=== PATIENT | male | born 1975 | race Caucasian/White ===

== ENCOUNTER 2016-09-08 01:15 | Inpatient (IN) ==
[2016-09-08 01:41] LABS: Basophils % 0.4 %; Eosinophils # 0.2 K/mcL (0.0-0.6); Eosinophils % 2.2 %; Hemoglobin 13.8 g/dL (12.9-16.9); Immature Granulocytes % 0.2 % (0-4); Immature Platelets 4.8 % (1.1-6.1); Lymphocytes # 1.8 K/mcL (0.6-4.6); Lymphocytes % 19.5 %; Mean Corpuscular HGB Conc 32.9 g/dL (31.6-35.5); Mean Corpuscular Hemoglobin 29.8 pg (28.0-33.3); Mean Corpuscular Volume 90.7 fL (83.0-100.0); Mean Platelet Volume 9.9 fL (9.4-12.4); Monocytes # 0.6 K/mcL (0.0-1.3); Monocytes % 6.9 %; Neutrophils # 6.5 K/mcL (1.6-8.9); Platelet Count 214 K/mcL (140-400); Red Blood Count 4.63 M/mcL (4.19-5.50); Red Cell Distribution Width 16.8 % (11.5-14.5); Segmented Neutrophils % 70.8 %
[2016-09-08 01:55] LABS: Alanine Aminotransferase 678 Units/L (0-55); Albumin 2.9 g/dL (3.5-5.0); Albumin/Globulin Ratio 0.8 (1.1-2.2); Alkaline Phosphatase 146 Units/L (38-126); Amylase 47 Units/L (25-125); Aspartate Amino Transferase 497 Units/L (5-34); BUN/Creatinine Ratio 7 (6-26); Bilirubin,Direct 9.5 mg/dL (0.0-0.5); Bilirubin,Indirect 1.8 mg/dL (0.0-1.2); Bilirubin,Total 11.3 mg/dL (0.2-1.2); Blood Urea Nitrogen 7 mg/dL (8-26); Calcium 9.4 mg/dL (8.6-10.8); Carbon Dioxide 25 mEq/L (19-29); Chloride 106 mEq/L (98-109); Globulin 3.6 g/dL (2.4-3.5); Glucose 109 mg/dL (70-99); Lipase 63 Units/L (8-78); Osmolality,Calculated 289 (280-300); Sodium 140 mEq/L (136-145); Total Protein 6.5 g/dL (6.0-8.3); eGFR For African Americans > 60 (> 60); eGFR For Non-African Americans > 60 (> 60)
[2016-09-08 03:33] LABS: Bilirubin,Urine Large (Negative); Blood,Urine Negative (Negative); Clarity,Urine Cloudy (Clear); Color,Urine Orange (Yellow); Glucose,Urine (UA) Normal (Normal); Ketones,Urine Trace mg/dL (Negative); Leukocyte Esterase,Urine Small (Negative); Nitrite,Urine Negative (Negative); Protein,Urine Negative (Neg-Trace); Specific Gravity,Urine 1.021 (1.010-1.025); Urobilinogen,Urine Normal (Normal)
[2016-09-08 03:36] LABS: Hyaline Casts,Urine None Seen per lpf (None-Few); Squamous Epithelial Cell,Urine None Seen per lpf (None-Few); WBC,Urine 0-3 per hpf (0-3)
[2016-09-08] MEDS ORDERED: Ondansetron 4 MG/2 ML VIAL IVP ONE (03:37)
[2016-09-08] MEDS ORDERED: 0.9 % Sodium Chloride 1,000 ML IVC ONE (03:37)
[2016-09-08] MEDS ORDERED: *HR* HYDROmorphone (PF) 1 MG/ML SYRINGE IVP ONE ×2 (03:37→04:43)
[2016-09-08 03:46] LABS: Bacteria,Urine Few per hpf (None-Few)
[2016-09-08 05:08] LABS: INR 1.1; Prothrombin Time 11.5 Seconds (9.4-12.1)
[2016-09-08 05:11] LABS: Activated Partial Thrombo Time 32.9 Seconds (26.0-36.0)
--- NOTE | 2016-09-08 05:25 | Emergency Department Note ---
Disposition Clinical Impression: Hepatitis, Elevated bilirubin, Cholecystitis Disposition: Admitted As Inpatient Condition: Fair Abdominal Pain HPI - General Chief Complaint: ED GI Bleed Stated Complaint: abdominal Time Seen by Provider: 09/08/16 03:02 Source: patient Mode of arrival: ambulatory Limitations: no limitations Nursing Notes Reviewed: Yes Vital Signs Reviewed: Yes - History of Present Illness HPI Narrative: Patient here for evaluation of abdominal pain and jaundice. Patient had a recent hospital stay up according review was diagnosed with hepatitis B as well as gallbladder problems. During the course of his stay he undergone several different opinions with what he says "nothing being done". She said that the communication was very poor and he does not even know what was wrong or what they have done up to this point other than he had gotten pain medications and antibiotics. [facility] has been contacted and we have been unable to get medical records at this time. Due to the patient's significant pain as well as jaundice repeat labs were drawn in triage and upon arrival in the main ED and IV was placed and the patient underwent CT scan. CT scan concerning for acute cholecystitis. This will be discussed with Dr. Leal, the general surgeon. Pain Scale: 8 - Related Data Allergies Allergy/AdvReac Type Severity Reaction Status Date / Time No Known Allergies Allergy Verified 09/08/16 01:16 Review of Systems: CONSTITUTIONAL: Weakness and fatigue with intermittent chills HEENT: Eyes: No visual changes. Ears, Nose, Throat: No hearing loss, difficulty talking or unable to swallow. SKIN: Jaundice with pruritus. CARDIOVASCULAR: No chest pain, chest pressure or chest discomfort. No palpitations or edema. RESPIRATORY: No shortness of breath, cough or sputum. GASTROINTESTINAL: Abdominal pain with radiation to the back and associated nausea and vomiting and anorexia. GENITOURINARY: No burning on urination or hematuria. NEUROLOGICAL: No headache, dizziness, syncope, paralysis, ataxia, numbness or tingling in the extremities. No change in bowel or bladder control. MUSCULOSKELETAL: Back pain Abdominal Pain PMH - Past Medical History Medical history: Reports: hepatitis, other Male Surgical History: Reports: herniorrhaphy Psychiatric history: Reports: no psych history - Social History Smoking status: Current every day smoker Alcohol use: Reports: rarely Drug use: Reports: marijuana Physical Exam General appearance: Patient grimacing and significant abdominal pain, conversant Eyes: Jaundiced sclerae, moist conjunctivae; PERRL HENT: Atraumatic; oropharynx clear with moist mucous membranes and no mucosal ulcerations Neck: Normal inspection; Trachea midline; FROM, supple Lungs: CTA, with normal respiratory effort and no intercostal retractions CV: RRR, no MRGs Abdomen: Right upper quadrant and epigastric tenderness with guarding. Extremities: Excoriations to the lower extremities Skin: Jaundice Psych: Appropriate mood and affect Neuro: alert and oriented to person, place and time - General Limitations: no limitations General appearance: alert, in no apparent distress Course - Reevaluation(s) Reevaluation #1: Patient's pain significant improved. We will continue to treat and monitor while working on admission process. - Consultations Consultation #1: Discussed with Dr. Arnold. Patient will need to go to undergo screening for hepatitis as well as an MRCP. He will likely have a lot of the tests completed at [facility] to be repeated if we are unable to get records. Recommended against antibiotics at this time - Patient has normal white count Consultation #2: Discussed with Dr. Lee. Pt accepted. Vital Signs Temperature 98.1 F 09/08/16 01:16 Pulse Rate 66 09/08/16 01:16 Respiratory Rate 18 09/08/16 01:16 Blood Pressure 128/89 09/08/16 01:16 O2 Sat by Pulse Oximetry 99 09/08/16 01:16 Temperature 98.1 F 09/08/16 01:16 Pulse Rate 59 09/08/16 06:06 Respiratory Rate 20 09/08/16 06:06 Blood Pressure 116/78 09/08/16 06:06 O2 Sat by Pulse Oximetry 94 09/08/16 06:06 Oxygen Delivery Oxygen Delivery Room Air Abdominal Pain - Lab Data Result diagrams: 09/08/16 01:34 09/08/16 01:34 Lab Results 09/08/16 09/08/16 09/08/16 Range/Units 01:34 01:34 01:34 WBC 9.2 (4.3-11.1) K/mcL RBC 4.63 (4.19-5.50) M/mcL Hgb 13.8 (12.9-16.9) g/dL Hct 42.0 (37.5-50.1) % MCV 90.7 (83.0-100.0) fL MCH 29.8 (28.0-33.3) pg MCHC 32.9 (31.6-35.5) g/dL RDW 16.8 H (11.5-14.5) % Plt Count 214 (140-400) K/mcL MPV 9.9 (9.4-12.4) fL Immature Gran % 0.2 (0-4) % Seg Neutrophils % 70.8 % Lymphocytes % 19.5 % Monocytes % 6.9 % Eosinophils % 2.2 % Basophils % 0.4 % Neutrophils # 6.5 (1.6-8.9) K/mcL Lymphocytes # 1.8 (0.6-4.6) K/mcL Monocytes # 0.6 (0.0-1.3) K/mcL Eosinophils # 0.2 (0.0-0.6) K/mcL Basophils # 0.0 (0.0-0.2) K/mcL Immature Plt Fraction 4.8 (1.1-6.1) % PT 11.5 (9.4-12.1) Seconds INR 1.1 APTT 32.9 (26.0-36.0) Seconds Sodium 140 (136-145) mEq/L Potassium 4.0 (3.5-4.5) mEq/L Chloride 106 (98-109) mEq/L Carbon Dioxide 25 (19-29) mEq/L BUN 7 L (8-26) mg/dL Creatinine 1.00 (0.72-1.25) mg/dL Est GFR ( Amer) > 60 (> 60) Est GFR (Non-Af Amer) > 60 (> 60) BUN/Creatinine Ratio 7 (6-26) Glucose 109 H (70-99) mg/dL Calculated Osmolality 289 (280-300) Lactic Acid (0.5-2.2) mmol/L Calcium 9.4 (8.6-10.8) mg/dL Total Bilirubin 11.3 H (0.2-1.2) mg/dL Direct Bilirubin 9.5 H (0.0-0.5) mg/dL Indirect Bilirubin 1.8 H (0.0-1.2) mg/dL AST 497 H (5-34) Units/L ALT 678 H (0-55) Units/L Alkaline Phosphatase 146 H (38-126) Units/L Ammonia (18-72) mcmol/L Serum Total Protein 6.5 (6.0-8.3) g/dL Albumin 2.9 L (3.5-5.0) g/dL Globulin 3.6 H (2.4-3.5) g/dL Albumin/Globulin Ratio 0.8 L (1.1-2.2) Amylase 47 (25-125) Units/L Lipase 63 (8-78) Units/L Urine Color (Yellow) Urine Clarity (Clear) Urine pH (5.0-8.0) pH Units Ur Specific [place] (1.010-1.025) Urine Protein (Neg-Trace) mg/dL Urine Glucose (UA) (Normal) mg/dL Urine Ketones (Negative) mg/dL Urine Blood (Negative) Urine Nitrite (Negative) Urine Bilirubin (Negative) Urine Urobilinogen (Normal) mg/dL Ur Leukocyte Esterase (Negative) Urine Microscopic RBC (0-3) per hpf Urine Microscopic WBC (0-3) per hpf Ur Squamous Epith Cells (None-Few) per lpf Urine Bacteria (None-Few) per hpf Hyaline Casts (None-Few) per lpf Ur Culture Indicated? (NO) 09/08/16 09/08/16 09/08/16 Range/Units 03:23 04:06 04:06 WBC (4.3-11.1) K/mcL RBC (4.19-5.50) M/mcL Hgb (12.9-16.9) g/dL Hct (37.5-50.1) % MCV (83.0-100.0) fL MCH (28.0-33.3) pg MCHC (31.6-35.5) g/dL RDW (11.5-14.5) % Plt Count (140-400) K/mcL MPV (9.4-12.4) fL Immature Gran % (0-4) % Seg Neutrophils % % Lymphocytes % % Monocytes % % Eosinophils % % Basophils % % Neutrophils # (1.6-8.9) K/mcL Lymphocytes # (0.6-4.6) K/mcL Monocytes # (0.0-1.3) K/mcL Eosinophils # (0.0-0.6) K/mcL Basophils # (0.0-0.2) K/mcL Immature Plt Fraction (1.1-6.1) % PT (9.4-12.1) Seconds INR APTT (26.0-36.0) Seconds Sodium (136-145) mEq/L Potassium (3.5-4.5) mEq/L Chloride (98-109) mEq/L Carbon Dioxide (19-29) mEq/L BUN (8-26) mg/dL Creatinine (0.72-1.25) mg/dL Est GFR ( Amer) (> 60) Est GFR (Non-Af Amer) (> 60) BUN/Creatinine Ratio (6-26) Glucose (70-99) mg/dL Calculated Osmolality (280-300) Lactic Acid 0.7 (0.5-2.2) mmol/L Calcium (8.6-10.8) mg/dL Total Bilirubin (0.2-1.2) mg/dL Direct Bilirubin (0.0-0.5) mg/dL Indirect Bilirubin (0.0-1.2) mg/dL AST (5-34) Units/L ALT (0-55) Units/L Alkaline Phosphatase (38-126) Units/L Ammonia 36 (18-72) mcmol/L Serum Total Protein (6.0-8.3) g/dL Albumin (3.5-5.0) g/dL Globulin (2.4-3.5) g/dL Albumin/Globulin Ratio (1.1-2.2) Amylase (25-125) Units/L Lipase (8-78) Units/L Urine Color [place] A (Yellow) Urine Clarity Cloudy A (Clear) Urine pH 6.0 (5.0-8.0) pH Units Ur Specific [place] 1.021 (1.010-1.025) Urine Protein Negative (Neg-Trace) mg/dL Urine Glucose (UA) Normal (Normal) mg/dL Urine Ketones Trace H (Negative) mg/dL Urine Blood Negative (Negative) Urine Nitrite Negative (Negative) Urine Bilirubin Large H (Negative) Urine Urobilinogen Normal (Normal) mg/dL Ur Leukocyte Esterase Small H (Negative) Urine Microscopic RBC 3-5 H (0-3) per hpf Urine Microscopic WBC 0-3 (0-3) per hpf Ur Squamous Epith Cells None Seen (None-Few) per lpf Urine Bacteria Few (None-Few) per hpf Hyaline Casts None Seen (None-Few) per lpf Ur Culture Indicated? YES A (NO) Attestation Statement - Attestation Attestation: I, Percy Weaver MD, personally evaluated this patient and discussed their management with the resident physician. I reviewed the resident's note and agree with the documented findings, medical decision making, and plan of care. 40-year-old male presents to the emergency department complaining of right upper abdominal pain which is been going on about one month prior to arrival. Patient was recently admitted at [facility] in [place] for this complaint and left AMA because he felt like they were not doing anything to help him. reports that he had a CT scan which showed cholecystitis with fluid around the gallbladder. He also had markedly elevated hepatic enzymes. On examination patient is a well-developed well-nourished male in no acute distress but appears to be in moderate discomfort. He is alert and oriented 3. There is no cyanosis or diaphoresis. There is jaundice and icterus. Breath sounds clear and equal bilaterally. Heart regular rate and rhythm. Abdomen is soft with marked right upper quadrant tenderness with guarding. Abdomen reviewed. WBC normal. Markedly elevated bilirubin and transaminases. CT of the abdomen and pelvis shows acute cholecystitis with marked thickening of the gallbladder wall with pericholecystic fluid and fat stranding. Dr. Wilder discussed the case with the surgeon junior automation engineer, Dr. Arnold, and she recommended admission by the hospitalist. The hospitalist, Dr. Lee, was consulted and accepted admission of the patient.
[2016-09-08] MEDS ORDERED: Naloxone 0.4 MG/ML INJ IVP PRN (07:18)
[2016-09-08] MEDS ORDERED: *HR* Promethazine 25 MG/ML VIAL IVP PRN (07:18)
[2016-09-08] MEDS ORDERED: *HR* Morphine 2 MG/ML SYRINGE IVP PRN (07:18)
--- NOTE | 2016-09-08 08:11 | Internal Med History&Physical ---
Date of Encounter: 09/08/16 Time of Encounter: 08:00 Assessment and Plan (1) Cholecystitis Current visit: Yes Status: Suspected Possible acute cholecystitis. Will get MRCP. Consult surgery. Keep nothing by mouth. Monitor vital signs. Pain control. Moderate risk for complications. (2) Hepatitis Current visit: Yes Status: Chronic Patient apparently recently diagnosed with hepatitis B. We will obtain records from [facility] to confirm. (3) Elevated bilirubin Current visit: Yes Status: Acute Likely due to acute cholecystitis/hepatitis. Internal Medicine - H&P: HPI Chief complaint: Right upper quadrant abdominal pain Admitted From: Emergency Dept Plans for Post Hospital Care: Home History of present illness: Mr. Edgar is a 40 year old male patient with no significant past medical history presented to the ER with complaints of abdominal pain. Pain has been going on for 3 weeks now. Patient was admitted twice at [facility] in [place] within the past 3 weeks. He had undergone extensive testing there with multiple ultrasounds and CT scans of his abdomen. He says that no clear diagnosis was found and the patient was continuing to have pain so he left AGAINST MEDICAL ADVICE. He was apparently diagnosed with hepatitis B there. He denies any alcohol use. He had some nausea and vomiting when his symptoms initially began but right now it is mostly pain 9 out of 10 in severity. He will have some associated heartburn. No fever chills or night sweats. He also had diarrhea previously that has also improved now. Past Med Surg Social Fam HX - Past Medical History Attestation: Yes The following information was validated with the patient. Source: patient Medical history: hepatitis, other Psychiatric history: no psych history - Social History Smoking Status: Current every day smoker Smokeless Tobacco Status: No Alcohol use: rarely Drug use: marijuana - Additional Family History Additional family history: Reviewed and found to be noncontributory Internal Medicine - H&P: Meds Allergies No Known Allergies Allergy (Verified 09/08/16 01:16) All Systems PM: A 10-system review of systems was performed and is negative for pertinent findings except as documented above in the HPI. - Constitutional Constitutional: malaise, no chills, no fever(s), no night sweats - EENT Eyes: no change in vision, no discharge, no pain, no photophobia Ears: no ear discharge, no ear pain, no tinnitus Nose, mouth and throat: no dysphagia, no nasal discharge, no neck pain, no sore throat - Cardiovascular Cardiovascular ROS IM: no chest pain, no diaphoresis, no dyspnea, no lightheadedness, no palpitations, no syncope - Respiratory Respiratory: no cough, no dyspnea, no wheezing, no excessive phlegm production - Gastrointestinal Gastrointestinal: abdominal pain, loose stools, nausea, vomiting, no diarrhea, no hematemesis, no hematochezia, no melena - Musculoskeletal Musculoskeletal ROS IM: no numbness, no tingling - Integumentary Integumentary IM: no rash, no unusual bruising - Neurological Neurological ROS: no confusion, no convulsions, no focal weakness, no numbness, no tingling, no tremor(s) - Hematologic/Lymphatic Hematologic/Lymphatic: no easy bruising - Constitutional Vitals: Temp Pulse Resp BP Pulse Ox 97.6 F 56 15 101/62 94 09/08/16 07:08 09/08/16 07:08 09/08/16 07:08 09/08/16 07:08 09/08/16 07:08 General appearance: Present: cooperative, A&O X 3, answers questions appropriately Exam: moderate distress - Eye Eye exam: Present: EOMI, PERRL, scleral icterus - Neck Neck exam general surgery: Present: supple, trachea midline. Absent: lymphadenopathy - Respiratory Respiratory exam: Present: CTAB. Absent: accessory muscle use, rales, rhonchi, wheezes - Cardiovascular Cardiovascular exam: Present: RRR, +S1, +S2. Absent: diastolic murmur, gallop, rubs, systolic murmur - Extremities Exam Extremities exam: Present: warm, radial pulses palpable and symetrical. Absent : calf tenderness, cyanotic, pedal edema - Neurological Exam Neurological exam: Present: alert, oriented X3, no focal deficits. Absent: facial droop, speech deficit - Skin Skin exam: Present: dry, intact Additional comments: jaundice Internal Med - H&P Results - Labs CBC & Chem 7: 09/08/16 01:34 09/08/16 01:34 - Impressions Impressions Abdomen/Pelvis CT 09/08/16 03:36 IMPRESSION: 1. Acute cholecystitis. No definite cholelithiasis is identified. 2. Middle lobe pulmonary nodule. Given that the mean diameter is 4.5 mm, further follow-up is not necessary per the modified Fleischner criteria. D/ / Alexy Kothari MD / Alexy Kothari MD Interpreting Provider: Alexy Kothari MD
[2016-09-08] MEDS: 0.9 % Sodium Chloride 1,000 ML IVC SCH ×2 (09:14→17:49)
[2016-09-08] MEDS ORDERED: Ketorolac 15 MG/ML VIAL IVP PRN (09:29)
[2016-09-08] MEDS: Nicotine 21 MG PATCH.TD24 TD SCH (10:52)
[2016-09-08 12:42] LABS: Hepatitis A Antibody IgM Nonreactive (Nonreactive); Hepatitis C Virus Antibody Nonreactive (Nonreactive)
[2016-09-08 12:49] LABS: Hepatitis B Core IgM Reactive (Nonreactive); Hepatitis B Surface Antigen Reactive (Nonreactive)
[2016-09-08] MEDS: *HR* HYDROmorphone (PF) 1 MG/ML SYRINGE IVP PRN ×3 (12:58→21:59)
--- NOTE | 2016-09-08 16:09 | General Surgery Consult Note ---
<Martha Patel - Last Filed: 09/08/16 16:03> Date of Encounter: 09/08/16 Time of Encounter: 14:00 Assessment and Plan (1) Elevated liver enzymes Current Visit: Yes Status: Acute Recommend GI consultation for evaluation Trend LFTs (2) Hyperbilirubinemia Current Visit: Yes Status: Acute MRI complete and shows no evidence of cholelithiasis, choledocholithiasis, or ductal dilatation Recommend GI consulation for recommendations Repeat am labs (3) Hepatitis B Current Visit: Yes Status: Acute Await GI consulation/recommendations Qualifiers: Viral hepatitis chronicity: unspecified Hepatic coma status: without hepatic coma Hepatitis delta agent presence: without delta-agent Qualified Code(s): B19.10 - Unspecified viral hepatitis B without hepatic coma (4) Abdominal pain Current Visit: Yes Status: Acute Supportive care/pain control Serial abdominal exams Will continue to follow and assess progress Qualifiers: Abdominal location: right upper quadrant Qualified Code(s): R10.11 - Right upper quadrant pain History of Present Illness Consult date: 09/08/16 Reason for consult: other (elevated LFTs) Requesting physician: Michael Rivera History of present illness: Mr. Edgar is a 40 year old male who denies any past medical history. He states that he sudden onset of upper abdominal discomfort, mostly on the right side which started approximately 3 weeks ago. He states that the pain is sharp and stabbing and radiates into his back. He reports that it is constant at this point. Denies any alleviating or aggrevating factors. He denies every having pain like this in the past. He does admit to nausea and vomiting when the pain initially started but states that this has resolved. He admits to diarrhea when the pain initially started but states that his has resolved. Denies any melena or hematochezia. Denies any fevers or chills. Denies any shortness of breath of chest pains. He admits that his urine has been tea colored. Denies any alcohol or drug use. He has been admitted to [facility] 2 times in the past 3 weeks and reports that he has had multiples labs and radiologic studies. He states that he left AMA both times because he did not feel that they were doing anything to help him. Past Med Surg Social Fam HX - Past Medical History Source: patient Medical history: hepatitis (B), other Psychiatric history: no psych history - Past Surgical History Surgical History: herniorrhaphy (bilateral inguinal as a child) - Social History Smoking Status: Current every day smoker Packs per day: 1 PPD Smokeless Tobacco Status: No Alcohol use: rarely Drug use: marijuana Current living situation: Home - Independent Activity Level: Independent ambulation Medications and Allergies No Known Home Drugs 09/08/16 [History] Allergies No Known Allergies Allergy (Verified 09/08/16 16:03) Review of Systems All systems PM: reviewed and no additional remarkable complaints except as stated (in the HPI) All systems PM: A 10-system review of systems was performed and is negative for pertinent findings except as documented above in the HPI. General Surgery Exam Initial Vital Signs Temp Pulse Resp BP Pulse Ox 98.1 F 66 18 128/89 99 09/08/16 01:16 09/08/16 01:16 09/08/16 01:16 09/08/16 01:16 09/08/16 01:16 - General physical appearance well developed, well nourished, no distress - Eyes normal ocular movement - ENT normal mucosa, atraumatic, normocephalic - Neck trachea midline - Respiratory normal respiratory effort wheezing: bilateral - Cardiovascular Cardiovascular exam: Present: bradycardia - Abdomen Abdomen general surgery: Present: bowel sounds present, soft, tender Abdominal Tenderness: Present: epigastic, RUQ - Integumentary Integumentary general surgery: Present: warm and dry - Neurologic Present: CN 2-12 grossly intact - Psychiatric Psychiatric general surgery: Present: appropriate, oriented to person, oriented to place, oriented to time, speech is normal, memory intact Exam Initial Vital Signs Temp Pulse Resp BP Pulse Ox 98.1 F 66 18 128/89 99 09/08/16 01:16 09/08/16 01:16 09/08/16 01:16 09/08/16 01:16 09/08/16 01:16 Results - Labs 09/08/16 01:34 09/08/16 01:34 Abnormal lab results RDW 16.8 % (11.5-14.5) H 09/08/16 01:34 BUN 7 mg/dL (8-26) L 09/08/16 01:34 Glucose 109 mg/dL (70-99) H 09/08/16 01:34 Total Bilirubin 11.3 mg/dL (0.2-1.2) H 09/08/16 01:34 Direct Bilirubin 9.5 mg/dL (0.0-0.5) H 09/08/16 01:34 Indirect Bilirubin 1.8 mg/dL (0.0-1.2) H 09/08/16 01:34 AST 497 Units/L (5-34) H 09/08/16 01:34 ALT 678 Units/L (0-55) H 09/08/16 01:34 Alkaline Phosphatase 146 Units/L (38-126) H 09/08/16 01:34 Albumin 2.9 g/dL (3.5-5.0) L 09/08/16 01:34 Globulin 3.6 g/dL (2.4-3.5) H 09/08/16 01:34 Albumin/Globulin Ratio 0.8 (1.1-2.2) L 09/08/16 01:34 Urine Color [place] (Yellow) A 09/08/16 03:23 Urine Clarity Cloudy (Clear) A 09/08/16 03:23 Urine Ketones Trace mg/dL (Negative) H 09/08/16 03:23 Urine Bilirubin Large (Negative) H 09/08/16 03:23 Ur Leukocyte Esterase Small (Negative) H 09/08/16 03:23 Urine Microscopic RBC 3-5 per hpf (0-3) H 09/08/16 03:23 Ur Culture Indicated? YES (NO) A 09/08/16 03:23 Hep Bs Antigen Reactive (Nonreactive) H 09/08/16 01:34 Hep B Core IgM Ab Reactive (Nonreactive) H 09/08/16 01:34 All other labs normal. - Imaging CT scan - abdomen: report reviewed CT scan - pelvis: report reviewed Additional studies: Abdomen/Pelvis CT 09/08/16 03:36 IMPRESSION: 1. Acute cholecystitis. No definite cholelithiasis is identified. 2. Middle lobe pulmonary nodule. Given that the mean diameter is 4.5 mm, further follow-up is not necessary per the modified Fleischner criteria. D/ / Alexy Kothari MD / Alexy Kothari MD Interpreting Provider: Alexy Kothari MD Abdomen MRI 09/08/16 07:45 IMPRESSION: No significant interval change of gallbladder wall thickening and pericholecystic stranding/edema as well as trace ascites in the right abdomen. Findings may represent acute cholecystitis in the appropriate clinical setting. No cholelithiasis, choledocholithiasis or biliary dilation. Nonspecific mild periportal edema. D/ / 09/08/2016 11:20:04 Kimberly Figueroa MD / zohaib Interpreting Provider: Kimberly Figueroa MD Consult Discharge Plan - Plan Referrals: NO,PCP [Primary Care Provider] - - Attending Attestation I examined this patient and my medical decision-making was reviewed with the LAW CLERK/PA/Advanced Practice Nurse/Resident Physician. I agree with the documented findings, disposition and treatment plan as described except to the extent set forth below. <NancySuma vogt Liseth - Last Filed: 09/09/16 08:44> Date of Encounter: 09/08/16 Assessment and Plan (1) Abdominal pain Current Visit: Yes Status: Acute concern abdominal pain is due to hepatitis and not a gallbladder issue as I have never seen an acute/chronic acalculous cholecystitis with lfts so elevated , suspect due to hepatitis and gallbladder is reactive to liver inflammtion Qualifiers: Abdominal location: right upper quadrant Qualified Code(s): R10.11 - Right upper quadrant pain (2) Elevated bilirubin Current Visit: Yes Status: Acute (3) Hepatitis B Current Visit: Yes Status: Acute GI has stated they feel his issue is his acute hepatitis, general surgery will sign off at this time, if needed further please do not hesitate to call. Qualifiers: Viral hepatitis chronicity: acute Hepatic coma status: without hepatic coma Hepatitis delta agent presence: without delta-agent Qualified Code(s): B16.9 - Acute hepatitis B without delta-agent and without hepatic coma (4) Hyperbilirubinemia Current Visit: Yes Status: Acute History of Present Illness History of present illness: Patient is 40 yo male with recent onset about a month ago of RUQ abdominal pain he describes as sharp. She has gone to [facility] in [place] twice for this and his new onset jaundice. He became frustrated as he states he was being told different stories about what was going on and left the hospital and came down to [place]. He has had a very extensive workup that includes HIDA, MRCP, CT scan, labs. LFT's are significantly elevated and he has no gallstones, no duct dilation, no acute cholecystitis. He is awaiting GI consult. He has recently been diagnosed with Hepatitis B. Past Med Surg Social Fam HX - Past Medical History Source: patient Review of Systems All systems PM: A 10-system review of systems was performed and is negative for pertinent findings except as documented above in the HPI. General Surgery Exam Initial Vital Signs Temp Pulse Resp BP Pulse Ox 98.1 F 66 18 128/89 99 09/08/16 01:16 09/08/16 01:16 09/08/16 01:16 09/08/16 01:16 09/08/16 01:16 - General physical appearance well nourished, no distress, jaundice - Eyes PERRL, normal ocular movement, icteric - ENT normal mucosa, atraumatic - Neck trachea midline - Respiratory normal expansion, normal respiratory effort, clear to auscultation - Cardiovascular Cardiovascular exam: Present: RRR - Abdomen Abdomen general surgery: Present: bowel sounds present, soft, tender. Absent: guarding, rebound, rigid, peritoneal Abdominal Tenderness: Present: epigastic, RUQ - Integumentary Integumentary general surgery: Present: other (jaundice). Absent: no abnormal pigmentation - Neurologic Present: CN 2-12 grossly intact - Musculoskeletal Present: normal gait, normal posture - Psychiatric Psychiatric general surgery: Present: A&Ox3, speech is normal Exam Initial Vital Signs Temp Pulse Resp BP Pulse Ox 98.1 F 66 18 128/89 99 09/08/16 01:16 09/08/16 01:16 09/08/16 01:16 09/08/16 01:16 09/08/16 01:16 Results - Labs 09/09/16 04:36 09/09/16 04:36 Abnormal lab results RDW 17.2 % (11.5-14.5) H 09/09/16 04:36 BUN 6 mg/dL (8-26) L 09/09/16 04:36 POC Glucose 95 (58-89) H 09/09/16 00:03 Total Bilirubin 11.3 mg/dL (0.2-1.2) H 09/08/16 01:34 Direct Bilirubin 9.5 mg/dL (0.0-0.5) H 09/08/16 01:34 Indirect Bilirubin 1.8 mg/dL (0.0-1.2) H 09/08/16 01:34 AST 497 Units/L (5-34) H 09/08/16 01:34 ALT 678 Units/L (0-55) H 09/08/16 01:34 Alkaline Phosphatase 146 Units/L (38-126) H 09/08/16 01:34 Albumin 2.9 g/dL (3.5-5.0) L 09/08/16 01:34 Globulin 3.6 g/dL (2.4-3.5) H 09/08/16 01:34 Albumin/Globulin Ratio 0.8 (1.1-2.2) L 09/08/16 01:34 Urine Color [place] (Yellow) A 09/08/16 03:23 Urine Clarity Cloudy (Clear) A 09/08/16 03:23 Urine Ketones Trace mg/dL (Negative) H 09/08/16 03:23 Urine Bilirubin Large (Negative) H 09/08/16 03:23 Ur Leukocyte Esterase Small (Negative) H 09/08/16 03:23 Urine Microscopic RBC 3-5 per hpf (0-3) H 09/08/16 03:23 Ur Culture Indicated? YES (NO) A 09/08/16 03:23 Hep Bs Antigen Reactive (Nonreactive) H 09/08/16 01:34 Hep B Core IgM Ab Reactive (Nonreactive) H 09/08/16 01:34 Diabetes panel 09/09/16 Range/Units 04:36 Sodium 141 (136-145) mEq/L Potassium 3.9 (3.5-4.5) mEq/L Chloride 109 (98-109) mEq/L Carbon Dioxide 23 (19-29) mEq/L BUN 6 L (8-26) mg/dL Creatinine 0.82 (0.72-1.25) mg/dL Glucose 92 (70-99) mg/dL Calcium 9.1 (8.6-10.8) mg/dL Calcium panel 09/09/16 Range/Units 04:36 Calcium 9.1 (8.6-10.8) mg/dL Pituitary panel 09/09/16 Range/Units 04:36 Sodium 141 (136-145) mEq/L Potassium 3.9 (3.5-4.5) mEq/L Chloride 109 (98-109) mEq/L Carbon Dioxide 23 (19-29) mEq/L BUN 6 L (8-26) mg/dL Creatinine 0.82 (0.72-1.25) mg/dL Glucose 92 (70-99) mg/dL Calcium 9.1 (8.6-10.8) mg/dL Adrenal panel 09/09/16 Range/Units 04:36 Sodium 141 (136-145) mEq/L Potassium 3.9 (3.5-4.5) mEq/L Chloride 109 (98-109) mEq/L Carbon Dioxide 23 (19-29) mEq/L BUN 6 L (8-26) mg/dL Creatinine 0.82 (0.72-1.25) mg/dL Glucose 92 (70-99) mg/dL Calcium 9.1 (8.6-10.8) mg/dL All other labs normal. - Imaging CT scan - abdomen: report reviewed, image reviewed CT scan - pelvis: report reviewed, image reviewed Additional studies: MRI reviewed - Attending Attestation I examined this patient and my medical decision-making was reviewed with the LAW CLERK/PA/Advanced Practice Nurse/Resident Physician. I agree with the documented findings, disposition and treatment plan as described except to the extent set forth below.
--- NOTE | 2016-09-08 17:02 | Event Note ---
Date of Encounter: 09/08/16 Time of Encounter: 15:00 Patient seen full consult to follow. Patient with acute hepatitis B.
[2016-09-08] MEDS: Pantoprazole 40 MG VIAL IVP SCH (17:48)
[2016-09-09] MEDS: *HR* HYDROmorphone (PF) 1 MG/ML SYRINGE IVP PRN ×3 (04:42→12:38)
[2016-09-09] MEDS: 0.9 % Sodium Chloride 1,000 ML IVC SCH (04:44)
[2016-09-09 05:17] LABS: Basophils # 0.1 K/mcL (0.0-0.2); Basophils % 0.8 %; Eosinophils # 0.2 K/mcL (0.0-0.6); Eosinophils % 2.8 %; Hematocrit 41.4 % (37.5-50.1); Hemoglobin 13.8 g/dL (12.9-16.9); Immature Granulocytes % 0.3 % (0-4); Lymphocytes # 1.4 K/mcL (0.6-4.6); Mean Corpuscular HGB Conc 33.3 g/dL (31.6-35.5); Mean Corpuscular Hemoglobin 30.4 pg (28.0-33.3); Mean Corpuscular Volume 91.2 fL (83.0-100.0); Mean Platelet Volume 10.7 fL (9.4-12.4); Monocytes # 0.5 K/mcL (0.0-1.3); Monocytes % 7.4 %; Neutrophils # 4.3 K/mcL (1.6-8.9); Platelet Count 165 K/mcL (140-400); Red Blood Count 4.54 M/mcL (4.19-5.50); Red Cell Distribution Width 17.2 % (11.5-14.5); Segmented Neutrophils % 66.7 %
[2016-09-09] MEDS: Pantoprazole 40 MG VIAL IVP SCH (05:28)
[2016-09-09 05:39] LABS: BUN/Creatinine Ratio 7 (6-26); Blood Urea Nitrogen 6 mg/dL (8-26); Calcium 9.1 mg/dL (8.6-10.8); Carbon Dioxide 23 mEq/L (19-29); Chloride 109 mEq/L (98-109); Glucose 92 mg/dL (70-99); Osmolality,Calculated 289 (280-300); Potassium 3.9 mEq/L (3.5-4.5); Sodium 141 mEq/L (136-145); eGFR For African Americans > 60 (> 60); eGFR For Non-African Americans > 60 (> 60)
[2016-09-09] MEDS: Nicotine 21 MG PATCH.TD24 TD SCH (07:52)
[2016-09-09] MEDS: ALPRAZolam 0.5 MG TABLET PO PRN ×2 (08:38→14:04)
[2016-09-09 09:01] LABS: Albumin 2.6 g/dL (3.5-5.0); Albumin/Globulin Ratio 0.7 (1.1-2.2); Bilirubin,Direct 8.5 mg/dL (0.0-0.5); Bilirubin,Indirect 2.7 mg/dL (0.0-1.2); Globulin 3.5 g/dL (2.4-3.5); Total Protein 6.1 g/dL (6.0-8.3)
[2016-09-09 09:02] LABS: Bilirubin,Total 11.2 mg/dL (0.2-1.2)
[2016-09-09 11:46] VITALS: BP 129/82
--- NOTE | 2016-09-09 14:23 | Discharge Summary ---
Date of Encounter: 09/09/16 Time of Encounter: 10:00 - Discharge Diagnosis (1) Abdominal pain Priority: Primary Status: Acute Qualifiers: Abdominal location: right upper quadrant Qualified Code(s): R10.11 - Right upper quadrant pain (2) Hepatitis B Priority: Primary Status: Acute Qualifiers: Viral hepatitis chronicity: acute Hepatic coma status: without hepatic coma Hepatitis delta agent presence: without delta-agent Qualified Code(s): B16.9 - Acute hepatitis B without delta-agent and without hepatic coma (3) Elevated liver enzymes Priority: Primary Status: Acute (4) Hyperbilirubinemia Priority: Primary Status: Acute - Discharge Medications Prescriptions: OxyCODONE/APAP 5/325 [Percocet 5/325 MG] 1 each PO Q8HR PRN #10 tablet PRN Reason: Pain Home Medications: OxyCODONE/APAP 5/325 [Percocet 5/325 MG] 1 each PO Q8HR PRN #10 tablet 09/09/16 [Rx] Allergies/Adverse Reactions: Allergies No Known Allergies Allergy (Verified 09/08/16 16:03) Procedures/tests Complete & Pending: Procedures Performed prior 72 hours Category Date Time Status MR MRCP [MR abdomen wo con] [MR] Stat MRI 09/08/16 07:45 Completed Date of admission: 09/08/16 06:09 Primary care physician: PCP NO Consults: 09/08/16 08:07 Consult to Surgery [CONS] Routine Consulting Provider: Surgery [facility] Reason for Consult: Elevated bilirubin possible cholecystitis; ED discussed with Dr. Leal Call Completed: Yes 09/08/16 11:33 Consult to Gastroenterology [CONS] Routine Consulting Provider: Gastroenterology Bertha Reason for Consult: Hepatitis/ cholecystitis Time Notified: 11:33 Call Completed: Yes Discharging clinician: Temi Rivas Anticipated date of discharge: 09/09/16 - Patient Status Disposition: Home, Self-Care Condition: Fair Functional capacity at discharge: independent ambulation Overall status at discharge: patient is progressing back to baseline - Discharge Instructions Follow Up With: Emiliano Herbert DO [Resident] - 09/18/16 10:30 am (Please arrive early to fill out your new patient packet. You will need to bring your photo ID, insurance card, any medications you are on. If you need to cancel please give a 24 hour notice. Thank you) - Diet and Activity Activity: resume usual activities as tolerated Diet: low fat, low cholesterol (full liquids, advance to soft and solids as tolerated) Hospital course: Mr. Edgar is a 40 year old male with no significant medical history, who was admitted with right upper quadrant and epigastric abdominal pain. Patient has had 2 recent hospitalizations at [facility] in [place] from where he left AGAINST MEDICAL ADVICE and presented to our hospital on the same day with similar complaints. He is noted to have acute hepatitis B infection with elevated bilirubin and liver enzymes, possibly causing abdominal pain and discomfort. CT abdomen/pelvis was suggestive of acute cholecystitis and he underwent MRCP that showed no biliary dilation, choledocholithiasis or gallstones. He was kept nothing by mouth along with supportive care with IV hydration and pain control. Surgery was consulted and recommended no acute intervention. GI was consulted and recommend outpatient follow-up. Liver enzymes and bilirubin are noted to be elevated but stable. Hepatitis B surface antigen and hepatitis B core IgM are noted to be positive. Patient is able to tolerate oral diet and is anxious to be discharged today as he needs to get back to work as he has no other source of income. He is medically stable for discharge with outpatient follow-up. Time spent discussing smoking cessation with patient: 3 to 10 minutes - Time Spent with Patient Total time spent providing and/or coordinating discharge services: Greater than 30 minutes (45 min) - Constitutional Vitals: Temp Pulse Resp BP Pulse Ox 97.9 F 51 16 129/82 97 09/09/16 11:42 09/09/16 11:42 09/09/16 11:42 09/09/16 11:42 09/09/16 11:42 General appearance: Present: cooperative, A&O X 3, answers questions appropriately - Cardiovascular Cardiovascular exam: Present: RRR, +S1, +S2. Absent: diastolic murmur, gallop, rubs, systolic murmur - GI/Abdominal GI/Abdominal exam: Present: normal bowel sounds, soft (RUQ and epigastric tenderness), no peritoneal signs. Absent: distended, tenderness
--- NOTE | 2016-09-09 14:28 | Gastroenterology Consult Note ---
<Harsh Kaumfan - Last Filed: 09/09/16 14:30> Date of Encounter: 09/09/16 Time of Encounter: 11:15 - Time Spent With Patient Total time spent is greater than 50% in coordination of care (as documented) at patient's floor/unit and/or counseling patient: GI History of Present Illness - Data of Consult Patient: new to practice Consult date: 09/09/16 Requesting Physician: Temi Rivas MD - Consult Narrative Reason for consult: Hepatitis History of present illness: Mr. Edgar is a 40 year old male who denies any PMHx presented to the ED with complaints of abdominal pain for the past 3 weeks. He denies any alleviating or aggrevating factors. He has been admitted twice at [facility] in [place] in the past 3 weeks. He reports having multiple labs and radiologic studies completed. He states he left AMA both times because he did not feel that they were doing anything to help him. He was diagnosed with Hepatitis B while at [place]. He denies fever, chills, chest pain, alcohol use, melena, or hematochezia. He reports nausea, vomiting. and diarrhea when the pain started, but states it is resolved now. CT A/P shows gallbladder wall thickening with pericholecystic fat stranding and fluid, no definite cholelithiasis identified. MRI showed no cholelithiasis or choledocholithiasis or biliary dilation. Procedures: None NSAIDs: None Anticoagulation: None A/P 1. Hepatitis B: Acute hepatitis B. Total bili, LFTs, and INR stable. Will continue to monitor hepatic panel and PT/INR. If labs worsen, will need to start treatment, otherwise can continue to monitor. Follow up in GI office next week. 2. Elevated LFTs: Secondary to acute hepatitis B. Continue to monitor. 3. Hyperbilirubinemia: Secondary to acute hepatitis B. Continue to monitor. 4. Abdominal pain: RUQ and epigastric pain secondary to acute hepatitis B. Continue symptomatic treatment. No gallstones, ductal dilation, or acute cholecystitis noted. Past Med Surg Social Fam HX - Past Medical History Medical history: hepatitis (B), other Psychiatric history: no psych history - Past Surgical History Surgical History: herniorrhaphy (bilateral inguinal as a child) - Social History Smoking Status: Current every day smoker Packs per day: 1 PPD Smokeless Tobacco Status: No Alcohol use: rarely Drug use: marijuana - Gastrointestinal Gastrointestinal: Present: as per HPI - Constitutional Constitutional: as per HPI - EENT Eyes: as per HPI Ears: Present: as per HPI Nose, mouth and throat: Present: as per HPI - Cardiovascular Cardiovascular ROS: Present: as per HPI - Respiratory Respiratory IM: Present: as per HPI - Genitourinary Genitourinary: Absent: change in color, Urinary frequency - Neurological ROS Neurological GI: Present: as per HPI - Hematologic/Lymphatic Hematologic/Lymphatic pediatric: Present: as per HPI - Musculoskeletal Musculoskeletal ROS GI: Present: as per HPI - Integumentary Integumentary GI: Present: as per HPI - Psychiatric ROS Psychiatric GI: Present: as per HPI - Endocrine Endocrine IM: Present: as per HPI - Constitutional Vitals: Temp Pulse Resp BP Pulse Ox 97.9 F 51 16 129/82 97 09/09/16 11:42 09/09/16 11:42 09/09/16 11:42 09/09/16 11:42 09/09/16 11:42 General appearance: Present: cooperative, A&O X 3, no acute distress, answers questions appropriately - Head Head exam: Present: atraumatic, normocephalic - Eye Eye exam: Present: normal appearance, sclera anicteric - ENT ENT exam: Present: mucous membranes moist - Neck Neck exam general surgery: Present: normal inspection, trachea midline - Respiratory Respiratory exam: Present: CTAB. Absent: rales, rhonchi - Cardiovascular Cardiovascular exam: Present: RRR, +S1, +S2 - GI/Abdominal GI/Abdominal exam: Present: soft, tenderness (RUQ, epigastric), no peritoneal signs. Absent: distended, firm, guarding - Rectal Rectal exam: Present: deferred - Extremities Exam Extremities exam: Present: warm - Neurological Exam Neurological exam: Present: no focal deficits - Psychiatric Psychiatric exam: Present: normal affect, normal mood - Skin Skin exam: Present: dry, intact, normal color, warm Results - Labs CBC & Chem 7: 09/09/16 04:36 09/09/16 04:36 Labs: Last Result Calcium 9.1 mg/dL (8.6-10.8) 09/09/16 04:36 Entire Visit Hgb 13.8 g/dL (12.9-16.9) 09/09/16 04:36 Hct 41.4 % (37.5-50.1) 09/09/16 04:36 PT 11.5 Seconds (9.4-12.1) 09/08/16 01:34 Total Bilirubin 11.2 mg/dL (0.2-1.2) H 09/09/16 08:44 AST 529 Units/L (5-34) H 09/09/16 08:44 ALT 608 Units/L (0-55) H 09/09/16 08:44 Ammonia 36 mcmol/L (18-72) 09/08/16 04:06 Amylase 47 Units/L (25-125) 09/08/16 01:34 Lipase 63 Units/L (8-78) 09/08/16 01:34 - ABG ABG results: PT/INR, D-dimer PT 11.5 Seconds (9.4-12.1) 09/08/16 01:34 - Impressions Impressions Abdomen MRI 09/08/16 07:45 IMPRESSION: No significant interval change of gallbladder wall thickening and pericholecystic stranding/edema as well as trace ascites in the right abdomen. Findings may represent acute cholecystitis in the appropriate clinical setting. No cholelithiasis, choledocholithiasis or biliary dilation. Nonspecific mild periportal edema. D/ / 09/08/2016 11:20:04 Kimberly Figueroa MD / [email or web address] Interpreting Provider: Kimberly Figueroa MD Consult Discharge Plan - Plan Referrals: Emiliano Herbert DO [Resident] - 09/18/16 10:30 am (Please arrive early to fill out your new patient packet. You will need to bring your photo ID, insurance card, any medications you are on. If you need to cancel please give a 24 hour notice. Thank you) Prescriptions: OxyCODONE/APAP 5/325 [Percocet 5/325 MG] 1 each PO Q8HR PRN #10 tablet PRN Reason: Pain <Gul,Talia - Last Filed: 09/09/16 18:54> Date of Encounter: 09/09/16 Time of Encounter: 13:00 - Time Spent With Patient Total time spent is greater than 50% in coordination of care (as documented) at patient's floor/unit and/or counseling patient: GI History of Present Illness - Data of Consult Requesting Physician: Temi Rivas MD - Consult Narrative History of present illness: Mr. Edgar is a 40 year old male - Constitutional Vitals: Temp Pulse Resp BP Pulse Ox 97.9 F 51 16 129/82 97 09/09/16 11:42 09/09/16 11:42 09/09/16 11:42 09/09/16 11:42 09/09/16 11:42 Results - Labs CBC & Chem 7: 09/09/16 04:36 09/09/16 04:36 Labs: Last Result Calcium 9.1 mg/dL (8.6-10.8) 09/09/16 04:36 Entire Visit Hgb 13.8 g/dL (12.9-16.9) 09/09/16 04:36 Hct 41.4 % (37.5-50.1) 09/09/16 04:36 PT 11.5 Seconds (9.4-12.1) 09/08/16 01:34 Total Bilirubin 11.2 mg/dL (0.2-1.2) H 09/09/16 08:44 AST 529 Units/L (5-34) H 09/09/16 08:44 ALT 608 Units/L (0-55) H 09/09/16 08:44 Ammonia 36 mcmol/L (18-72) 09/08/16 04:06 Amylase 47 Units/L (25-125) 09/08/16 01:34 Lipase 63 Units/L (8-78) 09/08/16 01:34 - ABG ABG results: PT/INR, D-dimer PT 11.5 Seconds (9.4-12.1) 09/08/16 01:34 - Attending Attestation I examined this patient and my medical decision-making was reviewed with the HANDLE MAKER/PA/Advanced Practice Nurse/Resident Physician. I agree with the documented findings, disposition and treatment plan as described except to the extent set forth below.
[2016-09-11 08:24] LABS: Hepatitis B Core Ab Total POSITIVE (Negative)
[2016-09-12 07:20] LABS: HBV Quant Interpretation DETECTED (Not Detected); HBV Quant Log by PCR 7.3 log IU
== END 2016-09-09 15:30 | disposition home or self-care (01) | DRG 445 ==
LOC: 3ANU 01:15 → EMEROO 01:15 → SUATTDRO 06:09 → 3ANU 06:30
PROVIDERS: ADMIT Internal Medicine; ATTEND Internal Medicine